=== PATIENT | female | born 1995 | race Caucasian/White ===

== ENCOUNTER 2018-11-27 07:41 | Emergency (ER) | payer OTHER ==
[2018-11-27] MEDS ORDERED: ONDANSETRON DISINTEGRATING 4 MG TAB ONE (07:52)
[2018-11-27] MEDS ORDERED: ONDANSETRON DISINTEGRATING 4 MG TAB PO ONE ×2 (07:56→09:14)
--- NOTE | 2018-11-27 08:13 | EDPHY ---
H & P Time Seen by Provider: 11/27/18 07:45 HPI/ROS: CHIEF COMPLAINT: Vertigo History by patient HISTORY OF PRESENT ILLNESS: 23-year-old woman who is otherwise healthy presents complaining of acute onset of vertigo which began while she was driving to work today. Patient said she was driving when she suddenly felt dizzy and off balance. She arrived at work and then vomited once in the parking lot. She feels worse when she moves her head around her turns her head. It is worse when she looks to the right. She feels like she needs to hold on to something to walk straight. She has never had this before. She has had no recent URI. She denies any head trauma. She just finished antibiotics for urinary tract infection. She denies any headache. She has no history of migraines and no family history of migraines. She denies any recent alcohol use and states she drinks rarely. She uses marijuana regularly. REVIEW OF SYSTEMS: As in HPI, and all other systems reviewed and are negative Smoking Status: Current some day smoker Physical Exam: General Appearance: Alert, eyes closed, uncomfortable appearing. Head: normocephalic, atraumatic Eyes: Pupils equal and round, reactive to light, no pallor or injection. Extraocular movements intact, positive right gaze nystagmus TM: Bilateral occluded by cerumen Mouth: Mucous membranes moist. Respiratory: Normal, effort, lungs are clear to auscultation. No wheezes, rales or rhonchi. Cardiovascular: Regular rate and rhythm. S1, S2, no murmurs, gallops or rubs appreciated Gastrointestinal: Abdomen is soft and nontender, no masses, bowel sounds normal. Back: No CVA tenderness, no bony tenderness Neurological: Awake, alert and oriented x 3, cranial nerves 2 through 12 intact , no pronator drift, strength 5/5 and equal bilaterally lower extremities, heel to matta intact, [id number] intact, DTRs 2+ and equal bilaterally, sensation equal bilaterally Skin: Warm and dry, no rashes. Musculoskeletal: No deformities or tenderness. Extremities: full range of motion, no edema, DP2+ bilat Psychiatric: Patient has normal affect, there is no agitation. Constitutional: Initial Vital Signs Temperature (C) 36.7 C 11/27/18 07:53 Heart Rate 83 11/27/18 07:53 Respiratory Rate 16 11/27/18 07:53 Blood Pressure 124/71 H 11/27/18 07:53 O2 Sat (%) 98 11/27/18 07:53 O2 Delivery Mode Room Air Allergies/Adverse Reactions: Penicillins Allergy (Verified 11/27/18 07:51) Home Medications: Medication Instructions Recorded OXcarbazepine [Trileptal] 300 mg PO 10/23/14 lamoTRIgine [LamICTAL 100 MG (RX)] 100 mg PO 10/23/14 Lunesta PRN 11/27/18 Meclizine HCl [Meclizine HCl 25 mg 25 mg PO BID #12 tab 11/27/18 (RX,OTC)] Ondansetron Odt [Zofran Odt 4 mg 4 mg PO Q4 #12 tab 11/27/18 (*)] MDM/Departure - MDM Medications Given: Discontinued Medications Meclizine HCl (Meclizine Hcl) 25 mg PO EDNOW ONE Stop: 11/27/18 10:34 Last Admin: 11/27/18 10:38 Dose: 25 mg Ondansetron HCl (Zofran Odt) 4 mg PO EDNOW ONE Stop: 11/27/18 07:57 Last Admin: 11/27/18 08:01 Dose: 4 mg Ondansetron HCl (Zofran Odt) 4 mg PO EDNOW ONE Stop: 11/27/18 09:15 Last Admin: 11/27/18 09:20 Dose: 4 mg ED Course/Re-evaluation: 23-year-old woman presents with vertigo, nausea and vomiting. Neurologic exam is intact and nystagmus suggests peripheral vertigo. Patient was given Zofran at triage. Patient vomited once shortly after arrival. I performed an Mike maneuver after which she was feeling better, though on re-evaluation her symptoms had not completely resolved. Mike maneuver was repeated and patient was observed. On re-evaluation patient dizziness had dramatically improved but she was still feeling very nauseous like she would vomit again and having difficulty when she opened her eyes. Patient was therefore given an additional dose of Zofran. On re-evaluation patient was feeling much better at rest but would have some recurrence of vertigo when she moves her head around. Mike maneuver was done for the 3rd time after which patient was feeling much better. She still had some mild symptoms when moving. On re-evaluation the patient continued to feel better but notice that her symptoms seem worsened when she looked to the left but had resolved when looking to the right. On repeat exam patient is noted to have some left gaze nystagmus but right gaze nystagmus had resolved. Given that I performed the Mike maneuver 3 times on the opposite side, and she has now new but much milder left-sided symptoms, we will defer further treatment to ENT Patient will be discharged home with some meclizine and Zofran for symptomatic treatment and follow up with ENT. I discussed this with the patient and her family and they understand agreeable to this plan. After patient was discharged while she was in the car in the parking lot she felt that her face and arms were erupting in a rash. Patient came back in. She denies any tongue swelling, throat tightening or difficulty breathing or itching. On exam patient's vital signs were within normal limits. Was noted to have a diffuse papular/vesicular rash on her arms face and back. This was non urticarial. Although clearly not anaphylaxis and not a classic larger action I cannot excluded reaction to meclizine and/or ondansetron and therefore I am recommending the patient did not take these. It is possible that her vertigo is related to a viral illness which is causing such an exanthem. We discussed these possibilities. This point I think the patient is safe for discharge. We discussed return precautions including but not limited to fever, worsening other rash, purulence from the rash, other new concerning symptoms or worsening. - Depart Disposition: Home, Routine, Self-Care Clinical Impression: BPV (benign positional vertigo) Qualifiers: Laterality: right Qualified Code(s): H81.11 - Benign paroxysmal vertigo, right ear Condition: Good Instructions: Meclizine (By mouth), Ondansetron (By mouth), Vertigo (ED) Additional Instructions: You were seen by Dr. Jocelyne Tran today. You may try meclizine if her symptoms recur or worsen. If your symptoms persist please follow-up with Ear Nose Throat specialist, Dr. Ash. Return for any worsening or new concerns. Stand Alone Forms: School Excuse, Work Excuse Prescriptions: Meclizine HCl [Meclizine HCl 25 mg (RX,OTC)] 25 mg PO BID #12 tab Ondansetron Odt [Zofran Odt 4 mg (*)] 4 mg PO Q4 #12 tab Referrals: Arti Ash MD [Medical Doctor] - As per Instructions
[2018-11-27] MEDS ORDERED: MECLIZINE HCL 25 MG TAB PO ONE (10:33)
[2018-11-27 11:15] VITALS: BP 111/51
== END 2018-11-27 11:25 | disposition home or self-care (01) ==
LOC: CED 07:41
DX: H81.11 Benign paroxysmal vertigo, right ear (principal); R11.2 Nausea with vomiting, unspecified; R21 Rash and other nonspecific skin eruption; F17.200 Nicotine dependence, unspecified, uncomplicated; Z88.0 Allergy status to penicillin
CPT/HCPCS: 99283-ER